=== PATIENT | female | born 1955 | race Hispanic/Latino ===

== ENCOUNTER 2019-12-19 12:44 | Emergency (ER) | payer MEDICARE ==
[~2019-12-19] VITALS: Ht 162.6 cm; Wt 59.0 kg
[~2019-12-19 12:44] MED LIST: ADVIL200 MG PO; CIPROFLOXACN500 MG; FISH OIL1000 MG PO; FLUCONAZOLE50 MG PO; GLIPIZIDE5 MG PO; LEVAQUIN500 MG PO; LIPITOR40 MG PO; METRONIDAZOL250 MG PO; PERCOCET 10/31 COMBO PO; STOOL SOFTENER; TERCONAZOLE0.4 % VA; TRICOR48 MG
[2019-12-19 13:07] VITALS: BP 110/53
== END 2019-12-19 15:07 | disposition left against medical advice (07) ==
LOC: ED 12:44 → LWOBS 15:07 → ED 15:07
DX: Z53.21 Procedure and treatment not carried out due to patient leaving prior to being seen by health care provider (principal)

== ENCOUNTER 2021-09-01 23:19 | Emergency (ER) | payer MEDICARE ==
[~2021-09-01] VITALS: Ht 157.5 cm; Wt 59.0 kg
[2021-09-01 23:30] VITALS: BP 115/83
[2021-09-01 23:55] LABS: HEMATOCRIT 38.8 % (37.0-47.0); HEMOGLOBIN 13.2 g/dl (12.0-16.0); IMMATURE GRANULOCYTES 0.2 % (0.0-5.0); MEAN CELL VOLUME 86.4 fL CALC (80.0-100.0); MEAN CORPUSCULAR HGB 29.4 pG CALC (26.0-32.0); NEUT# 7.14 thou/uL (2.00-7.15); RED BLOOD COUNT 4.49 mill/uL (4.20-5.60)
[2021-09-02 00:13] LABS: ALBUMIN 4.5 g/dL (3.2-5.0); ALKALINE PHOSPHATASE 81 u/l (38-126); AMYLASE 125 u/l (30-110); ANION GAP 16 (6-22 (CALC)); BILIRUBIN, TOTAL 0.4 mg/dL (0.0-1.4); BUN 14 mg/dL (8-23); BUN/CREATININE RATIO 28 (12-20 (CALC)); CARBON DIOXIDE 25 mmol/l (22-30); CHLORIDE 101 mmol/l (95-108); CREATININE 0.5 mg/dL (0.5-1.0); GFR > 60 ML/MIN (>=60 (CALC)); GFR FOR AFR.AMER. > 60 ML/MIN (>=60 (CALC)); LIPASE 239 u/l (23-300); SGOT/AST 24 u/l (9-36); SODIUM 138 mmol/l (137-146); TOTAL PROTEIN 8.7 g/dL (6.3-8.2)
[2021-09-02 00:15] VITALS: BP 115/82
[2021-09-02 00:24] LABS: MYOGLOBIN 33 ng/mL (0 - 62)
[2021-09-02 00:30] VITALS: BP 129/81
[2021-09-02 00:45] VITALS: BP 123/93
[2021-09-02] MEDS ORDERED: PHENERGAN25 MG RE (02:10)
[2021-09-02 02:15] VITALS: BP 114/73
[2021-09-02 02:30] VITALS: BP 118/69
[2021-09-02 02:45] VITALS: BP 118/69
== END 2021-09-02 02:45 | disposition home or self-care (01) ==
LOC: ED 23:19
PROVIDERS: Family Medicine
DX: K52.9 Noninfective gastroenteritis and colitis, unspecified (principal)
CPT/HCPCS: Q9967

== ENCOUNTER 2022-05-03 23:26 | Emergency (ER) | payer MEDICARE ==
[~2022-05-03] VITALS: Ht 157.5 cm; Wt 59.1 kg
[~2022-05-03 23:26] MED LIST changes: +PHENERGAN25 MG RE
[2022-05-04] VITALS (8 sets, daily range): BP systolic 102–122; BP diastolic 68–80
[2022-05-04] MEDS ORDERED: ALENDRONATE10 MG PO (00:44)
[2022-05-04] MEDS ORDERED: METFORMIN HCL500 M1 PO (00:44)
[2022-05-04] MEDS ORDERED: LIPITOR20 M1 PO (00:44)
[2022-05-04 00:57] LABS: HEMATOCRIT 39.3 % (37.0-47.0); HEMOGLOBIN 13.3 g/dl (12.0-16.0); IMMATURE GRANULOCYTES 0.1 % (0.0-5.0); MEAN CELL VOLUME 85.6 fL CALC (80.0-100.0); MEAN CORPUSCULAR HGB CONC 33.8 g/dL CAL (32.0-36.0); NEUT# 6.46 thou/uL (2.00-7.15); RED BLOOD COUNT 4.59 mill/uL (4.20-5.60); RED CELL DISTRI WIDTH 13.8 % (11.5-15.5)
[2022-05-04] MEDS ORDERED: PROMETHAZINE HY25 M1 PO (01:03)
[2022-05-04 01:09] LABS: ALBUMIN 4.4 g/dL (3.2-5.0); ALKALINE PHOSPHATASE 67 u/l (38-126); ANION GAP 14 (6-22 (CALC)); BILIRUBIN, TOTAL 0.5 mg/dL (0.0-1.4); BUN 18 mg/dL (8-23); BUN/CREATININE RATIO 34 (12-20 (CALC)); CARBON DIOXIDE 24 mmol/l (22-30); CHLORIDE 104 mmol/l (95-108); CREATININE 0.5 mg/dL (0.5-1.0); GFR FOR AFR.AMER. > 60 ML/MIN (>=60 (CALC)); GFR OTHER RACES > 60 ML/MIN (>=60 (CALC)); LIPASE 140 u/l (23-300); POTASSIUM 3.6 mmol/l (3.5-5.1); SGOT/AST 28 u/l (9-36); SODIUM 139 mmol/l (137-146); TOTAL PROTEIN 7.8 g/dL (6.3-8.2)
[2022-05-04 01:23] LABS: URINE BILIRUBIN - DIPSTICK NEGATIVE (NEGATIVE); URINE BLOOD DIPSTICK SMALL (NEGATIVE); URINE COLOR YELLOW; URINE GLUCOSE - DIPSTICK NEGATIVE (NEGATIVE); URINE KETONE >=80 mg/dL (NEGATIVE); URINE LEUK ESTERASE NEGATIVE (NEGATIVE); URINE PROTEIN - DIPSTICK NEGATIVE (NEG-TRACE); URINE SPECIFIC GRAVITY 1.025; URINE UROBILINOGEN - DIPSTICK 0.2 E.U./dL (0.2)
[2022-05-04 01:27] LABS: URINE NITRITE - DIPSTICK NEGATIVE (Negative)
[2022-05-04 01:34] LABS: URINE MUCUS FEW hpf (NONE-FEW); URINE SQUAMOUS EPITHELIAL CELL FEW EPI/hpf (0-FEW); URINE WBC 0-2 WBC/hpf (0-5)
== END 2022-05-04 01:25 | disposition home or self-care (01) ==
LOC: ED 23:26
PROVIDERS: Family Medicine
DX: K52.9 Noninfective gastroenteritis and colitis, unspecified (principal)

== ENCOUNTER 2024-04-01 11:21 | Emergency (ER) | payer MEDICARE ==
[2024-04-01] VITALS (11 sets, daily range): BP systolic 116–130; BP diastolic 67–76
[~2024-04-01] VITALS: Ht 157.5 cm; Wt 70.0 kg
[~2024-04-01 11:21] MED LIST changes: +ALENDRONATE10 MG PO; +LIPITOR20 M1 PO; +METFORMIN HCL500 M1 PO; +PROMETHAZINE HY25 M1 PO
[2024-04-01] MEDS ORDERED: ONDANSETRON HCl 4 MG/2 ML SDV IV ONE (11:50)
[2024-04-01] MEDS ORDERED: MECLIZINE HCL 25 MG/TAB VT ONE (11:50)
[2024-04-01] MEDS ORDERED: SODIUM CHLORIDE 0.9% 1,000 ML IV ONE ×2 (11:50)
[2024-04-01 12:17] LABS: BASO% 0.4 % (0-3); EOS% 0.7 % (0-8); HEMATOCRIT 38.1 % (37.0-47.0); HEMOGLOBIN 12.9 g/dl (12.0-16.0); IMMATURE GRANULOCYTES 0.2 % (0.0-5.0); LYMPH% 19.5 % (15-41); MEAN CELL VOLUME 85.8 fL CALC (80.0-100.0); MEAN CORPUSCULAR HGB 29.1 pG CALC (26.0-32.0); MEAN CORPUSCULAR HGB CONC 33.9 g/dL CAL (32.0-36.0); MONO% 5.4 % (2-13); NEUT# 3.97 thou/uL (2.00-7.15); NEUT% 73.8 % (42-76); RED BLOOD COUNT 4.44 mill/uL (4.20-5.60); RED CELL DISTRI WIDTH 14.3 % (11.5-15.5)
[2024-04-01] MEDS ORDERED: ZETIA10 MG PO (12:49)
[2024-04-01 12:51] LABS: URINE BILIRUBIN - DIPSTICK Negative (NEGATIVE); URINE BLOOD DIPSTICK Trace-intact (NEGATIVE); URINE COLOR Yellow; URINE GLUCOSE - DIPSTICK Negative (NEGATIVE); URINE KETONE Negative (NEGATIVE); URINE LEUK ESTERASE Negative (NEGATIVE); URINE NITRITE - DIPSTICK Negative (Negative); URINE PH 7.5 (4.5-8.0); URINE PROTEIN - DIPSTICK Negative (NEG-TRACE); URINE UROBILINOGEN - DIPSTICK 0.2 E.U./dL (0.2)
[2024-04-01] MEDS ORDERED: VITAMIN D-32000 UNI1 PO (12:51)
[2024-04-01] MEDS ORDERED: OMEGA-3 FISH1000 MG PO (12:51)
[2024-04-01 13:03] LABS: ALBUMIN 4.5 g/dL (3.2-5.0); BILIRUBIN, TOTAL 0.3 mg/dL (0.02-1.3); CREATININE 0.5 mg/dL (0.5-1.0); POTASSIUM 4.1 mmol/l (3.5-5.1); TOTAL PROTEIN 7.8 g/dL (6.3-8.2)
[2024-04-01] MEDS ORDERED: ONDANSETRON4 MG PO (13:17)
[2024-04-01] MEDS ORDERED: MECLIZINE 2525 MG PO (13:17)
== END 2024-04-01 15:39 | disposition home or self-care (01) ==
LOC: ED 11:21
PROVIDERS: Family Medicine
DX: R42 Dizziness and giddiness (principal); Z85.3 Personal history of malignant neoplasm of breast; Z85.43 Personal history of malignant neoplasm of ovary; Z90.49 Acquired absence of other specified parts of digestive tract; Z90.10 Acquired absence of unspecified breast and nipple; Z90.710 Acquired absence of both cervix and uterus